=== PATIENT | male | born 1995 | race Caucasian/White ===

== ENCOUNTER 2020-05-24 05:20 | Emergency (ER) | payer OTHER ==
[~2020-05-24] VITALS: Ht 188 cm; Wt 145.1 kg
[2020-05-24 05:23] VITALS: Ht 188 cm; Wt 145.1 kg
[2020-05-24 06:48] VITALS: BP 134/87
== END 2020-05-24 06:48 | disposition other institution (70) ==
LOC: ED 05:20
DX: Z02.89 Encounter for other administrative examinations (principal)